=== PATIENT | male | born 2000 | race Caucasian/White ===

== ENCOUNTER 2025-03-20 08:40 | Emergency (ER) | payer OTHER, SELFPAY ==
--- OUTSIDE RECORDS SUMMARY | 2025-03-02 08:15 | XMS_ITS | Encounter Summary ---
Author Organization [facility] Address [address] [place] [address] Care Team Providers Care Dye Boarding Machine Operator Name Role Phone Unavailable Primary Care Provider Unavailabl e Reason for Referral * Outpatient (Routine) - Authorized Specialty Diagnoses / Procedures Referred By Izzy thomas Referred To Contact Procedures OPH General eye exam Rachna Chong O.D. [address] [place] [address] Phone: tel: fax: [facility] Region Referral ID Status Reason Start Date Expiration Date V isits Requested Visits Authorized [id number] Authorized 03/02/2025 06/02/2026 1 1 Reason for Visit * Reason Comments Eye Exam * Appointment Request (Routine) - Closed Specialty Diagnoses / Procedures Referred By Izzy thomas Referred To Contact Ophthalmology Diagnoses Eye Examination Normal Referral ID Status Reason Start Date Expiration Date Visits Re quested Visits Authorized [id number] Closed 12/14/2024 03/16/2026 1 1 Encounter Details Date Type Department Care Team (Latest Contact Info) Description 03/02/2025 9:15 AM CDT Comprehensive Visit Department of Ophthalmology in [place], [place] [address] [place] [id number] Rachna Chong O.D. [address] [place] [address] Eye Examination Normal (Primary Dx); Myopia Bilateral; Astigmatism Regular Bilateral; Nevus Choroid Left Discharge Disposition: Home or Self Care Social History Tobacco Use Types Packs/Day Years Used Date Smoking Tobacco: Never Smokeless Tobacco: Never [facility] Utilities Answer Date Recorded In the past 12 months has th e electric, gas, oil, or water company threatened to shut off services in your home? No 06/26/2024 Hunger Vital Sign Answer Date Recorded Within the past 12 months, y ou worried that your food would run out before you got the money to buy more. Never true 06/26/19 25 Within the past 12 months, t he food you bought just didn't last and you didn't have money to get more. Never true 06/26/2024 PRAPARE - Transportation Answer Date Re corded In the past 12 months, has l ack of transportation kept you from medical appointments or from getting medications? No 06/11 In the past 12 months, has l ack of transportation kept you from meetings, work, or from getting things needed for daily living? No 06/26/2024 Housing Stability Answer Date Recorded What is your living situation today? I have a [facility] place to live 06/26/2024 Sex and Gender Information Value Date Recorded Sex Assigned at Male 06/26/2024 9:25 PM EVENT SECURITY OFFICER Legal Sex Male 9:42 AM EVENT SECURITY OFFICER Gender Identity Male 06/26/2024 9:25 PM EVENT SECURITY OFFICER Sexual Orientation Straight 06/26/2024 9: 25 PM EVENT SECURITY OFFICER documented as of this encounter Progress Notes * Rachna Chong O.D. - 03/02/2025 9:15 AM CDT Theo Navarrete was seen today for Eye Exam #1 Eye Examination Normal #2 Myopia Bilateral #3 Astigmatism Regular Bilateral #4 Nevus Choroid Left 1-3. Theo has had a significant change in his glasses prescription, specifically in the amount of astigmatism correction. Based on that, I did do an Orbscan to rule out keratoconus. There is no evidence of keratoconus on the Orbscan. Glasses prescription given. I do recommend he refrain from rubbing his eyes so much as that can lead to keratoconus. 4. This is being monitored at [facility]. documented in this encounter Plan of Treatment Scheduled Orders Name Type Priority Associated Diagnoses Orde r Schedule OPH General eye exam Procedures Routine Expe cted: 03/02/2027 (Approximate), Expires: 03/02/2028 documented as of this encounter Visit Diagnoses Diagnosis Eye Examination Normal- Primary Myopia Bilateral Astigmatism Regular Bilateral Nevus Choroid Left documented in this encounter
--- OUTSIDE RECORDS SUMMARY | 2025-03-20 08:46 | XMS_ITS | Clinical Summary ---
Author Organization [facility] Address [address] [place] [address] Care Team Providers Care Pediatric Speech Language Pathologist Name Role Phone Unavailable Primary Care Provider Unavailabl e Source Comments Patient records contain information from all sites at [facility]. For routine questions regarding patient records, call [phone] during business hours, M-F 8:00 AM - 5:00 PM Central Time. Record requests for emergency care only can be directed to [phone] at any time.[facility] Allergies No known active allergies Medications dextroamphetamin e-amphetamine (ADDERALL) 10 mg tablet Take 20 mg by mouth. Active Adderall XR 20 mg 24 hr capsule Take 1 mg by mouth daily. 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 on 09/28/2020 Encounters Date Type Department Care Team Description 03/02/2025 9:15 AM CDT Comprehensive Visit Department of Ophthalmology in [place], [place] [address] [place] [address] Chong, Rachna K, O.D. Eye Examination Normal (Primary Dx); Myopia Bilateral; Astigmatism Regular Bilateral; Nevus Choroid Left Discharge Disposition: Home or Self Care from Last 3 Months Family History Medical History Relation Name Comments Blindness Neg Hx Cataracts Neg Hx Glaucoma Neg Hx Macular degeneration Neg Hx Retinal degeneration Neg Hx Retinal detachment Neg Hx Strabismus Neg Hx Vision loss Neg Hx Social History Tobacco Use Types Packs/Day Years Used Date Smoking Tobacco: Never Smokeless Tobacco: Never Tobacco Cessation:Counseling Given: Not Answered [facility] Utilities Answer Date Recorded In the past 12 months has th e electric, gas, oil, or water [employer] threatened to shut off services in your [...] your living situation today? I have a [facility] place to live 06/26/2024 Sex and Gender Information Value Date Recorded Sex Assigned at Male 06/26/2024 9:25 PM LABEL PRINTING MACHINIST Legal Sex Male 9:42 AM LABEL PRINTING MACHINIST Gender Identity Male 06/26/2024 9:25 PM LABEL PRINTING MACHINIST Sexual Orientation Straight 06/26/2024 9: 25 PM LABEL PRINTING MACHINIST Plan of Treatment Health Maintenance Due Date Last Done Comments HIV Screening 1998 Hepatitis C Screening 1998 Depression Screening (Annual PHQ-2) 05/11/2024 COVID-19 Vaccine ( season) 2025 08/17/2024, 05/05/2021, 09/20/2020, Additional history exists Influenza Vaccine (#1) 2025 , 01/21/2022, 05/14/2017, Additional history exists DTaP,Tdap,and Td Vaccines (8 - Td or Tdap) 01/22/2032 01/21/2022, 12/28/2009, 12/12/2003, Additional history exists Hepatitis B Vaccines Completed 08/05/1999, 05/14/1999, 1998 Pneumococcal vaccine (0-49 years) Aged Out 02/04/2000 No longer eligible based on patient's age to complete this topic IPV Vaccines Completed 12/12/2003, 08/1999, 03/05/1999, Additional history exists HPV Vaccines Completed 07/14/2013, 11/2012, 03/16/2012 Insurance [place] [id number]
--- OUTSIDE RECORDS SUMMARY | 2025-03-20 08:47 | XMS_ITS | Clinical Summary ---
Author Organization [facility] Address [address] [place] [address] Care Team Providers Care Professor Of Art Name Role Phone Gerardo Carroll DO Primary Care Provider [phone] Source Comments You are receiving this document as you are listed as the primary care provider,follow-up provider, or the patient has been referred to you for consultation.This is in compliance with the Medicare and[facility] EHR Incentive Program,which states Providers who transition their patient to another setting of careor provider of care or refers their patient to another provider of care shouldprovide summary care record for each transition of care or referral. [facility] Allergies No known active allergies Medications amphetamine-dextro amphetamine XR (ADDERALL XR) 20 MG 24 hour release capsuleIndications :Attention deficit hyperactivity disorder (ADHD), predominantly inattentive type (HRC) Take 1 Capsule (20 mg) by mouth daily. 90 Capsule 4 Active amphetamine-dextro amphetamine (ADDERALL) 5 MG tabletIndications: Attention deficit hyperactivity disorder (ADHD), predominantly inattentive type (HRC) Take 1 tablet in the afternoon when needed. 30 Tablet 4 Active Active Problems Problem Noted Date Diagnosed Date CAREPLAN: CONTROLLED SUBSTANCE 10/01/2020 Overview (01/26/2024): OK to receive 30 tablets of Adderall XR 20mg each month and 30 tabs of 5mg IR each month. Must follow up once every 12 months. 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 12/23/2007 Overview (02/08/2015): Epic Incontinence of feces 11/08/20072020 Overview (01/17/2015): ICD 10 Immunizations Immunization Administration Dates Next Due 4vHPV (Gardasil) 07/14/2013,05/17/2012, 2 DTaP 12/12/2003, 0,05/14/1999,1998,01/04/1999 HepA Ped/Adol (1-18 yrs) 02/10/2008,06/15/2007 HepB Ped/Adol (0-18 yrs) 08/05/1999,05/14/1999,0 1998 Hib (ActHIB) 05/07/2000,05/14/1999,03/05/1999 IPV (Polio) 12/12/2003, 0,03/05/1999,1998 Influenza (Flucelvax), Prese rv Free QIV 06/18/2023 Influenza IIV4 (Quadrivalent ) 0.5mL (91618) 01/21/2022 MCV4 (Menactra) 02/25/2011 MCV4 Menveo 2m.+ (two vial) 01/29/2016 MMR 12/12/2003,02/04/2000 Moderna Monovalent 12+ 05/05/2021 Pfizer Monovalent 12+ 09/20/2020,08/30/2020 Pneumococcal 7, PED 02/04/2000 Tdap 01/21/2022,12/28/2009 Varicella 02/08/2007,02/04/2000 Family History Medical History Relation Name Comments Cancer Father Gerald Navarrete Retinal Disorder Father Gerald Navarrete Cancer Mother Agustina Henson High Cholesterol Mother Agustina Henson Blindness Maternal Aunt Retinal Detachment Maternal Grandfather Macular Degeneration Maternal Grandmother Cataract Negative Family History Glaucoma Negative Family History Relation Name Status Comments Father Gerald Navarrete Mother Agustina Henson Maternal Aunt Maternal Grandfather Maternal Grandmother Social History Tobacco Use Types Packs/Day Years Used Date Smoking Tobacco: Never Smokeless Tobacco: Never Tobacco Cessation:Counseling Given: Not Answered Alcohol Use Standard Drinks/Week Comments Yes 1 (1 standard drink = 0.6 oz pur e alcohol) Social PHQ-2 Answer Date Recorded PHQ-2 Score 1 01/26/2024 Sex and Gender Information Value Date Recorded Sex Assigned at Not on file Legal Sex Male 6:14 AM CDT Gender Identity Not on file Sexual Orientation Not on file Last Filed Vital Signs Vital Sign Reading Time Taken Comments Blood Pressure 129/84 06/18/2023 4:08 PM WEB MARKETING ANALYST Pulse 51 06/18/2023 4:08 PM WEB MARKETING ANALYST Temperature 36.7 C (98 F) 01/14/2022 8:02 AM CDT Respiratory Rate - - Oxygen Saturation - - Inhaled Oxygen Concentration - - Weight 74.8 kg (165 lb) 01/26/2024 11:55 AM CDT Height 175.3 cm (5' 9) 01/14/2022 8:02 AM CDT Body Mass Index 24.37 01/14/2022 8:02 AM CDT Plan of Treatment Health Maintenance Due Date Last Done Comments Careplan Update 1998 Drug Screen 1998 Hep C Screening (Preventive Services) 1998 Prescription Monitoring Program 1998 COVID-19 Vaccine ( season) 2025 05/05/2021, 09/20/2020, 08/30/2020 Influenza Vaccine (#1) 2025 06/18/2023, 2021 Adult Preventive Visit 06/18/2025 , 01/14/2022, 05/25/2020 DTaP/Tdap/Td Vaccine (8 - Tdap) 01/22/2032 01/21/2022, 12/28/2009, 12/12/2003, Additional history exists Zoster/Shingles Vaccine (1 of 2) 2048 HepB Vaccine Completed 08/05/1999, 08/1999, 1998 Pneumococcal Vaccine Aged Out 02/04/2000 No long er eligible based on patient's age to complete this topic Hib Vaccine Completed 05/07/2000, 08/1999, 03/05/1999 IPV (Polio) Vaccine Completed 12/12/2003, 05/14/1999, 03/05/1999, Additional history exists Varicella Vaccine Completed 02/08/2007, 02/04/2000 HepA Vaccine Completed 02/10/2008, 06/15/2007 HPV Vaccine Completed 07/14/2013, 11/2012, 03/16/2012 MCV4 Vaccine Completed 01/29/2016, 02/25/2011 HIV Screening (Preventive Services) Completed 10/01/2020 Meningococcal B Vaccine Aged Out No l onger eligible based on patient's age to complete this topic Procedures Procedure Name Priority Date/Time Associated Diagnosis Comments HIV 1/2 AG/AB 4TH GEN Routine 10/01/2020 1:07 PM CDT Screening for HIV (human immunodeficiency virus) from Last 3 Months or Most Recently Relevant to Health Maintenance Results * HIV 1/2 Ag/Ab 4th Generation (10/01/2020 1:07 PM CDT) HIV 1/2 Antigen/Anti body (4th generation) Negative (Non Reactive) Negative (Non Reactive) 10/01/2020 6:08 PM CDT [facility] Comment:HIV-1 p24 Antigen an d HIV-1/HIV-2 Antibody not detected Blood Venipuncture / Unknown 10/01/2020 1:07 PM CDT 10/01/2020 1:07 PM CDT us Gerardo Carroll DO LAB_1 Final Result [facility] [address] [id number], [place] [phone] from Last 3 Months or Most Recently Relevant to Health Maintenance Insurance [employer] Care Teams Professor Of Art Relationship Specialty Start Date End Date Gerardo Carroll DO [address] [place] [address] [place] [address] PCP - General Family Practice 10/01/20
[2025-03-20 08:51] VITALS: BP 129/84; PULSE 64; RESP 20; TEMP 36.8; O2SAT 99; BMI 26.3
--- NOTE | 2025-03-20 09:17 | ED.GENADULT ---
HPI - General Adult General Chief complaint: Extremity Pain/Injury, Upper Stated complaint: L shoulder injury Time Seen by Provider: 03/20/25 09:17 History of Present Illness HPI narrative: Arrives with complaints of atraumatic left shoulder pain that started yesterday and became worse after playing volleyball. Alert and oriented, VSS, ABCs intact. 24-year-old man presenting to emergency department complaint of left shoulder area pain. Was playing volleyball last night and does recall diving to his left. He is right handed. Had been having some discomfort in his left periscapular area though prior to this than it continued to escalate over the course of the evening. Just pain radiating through left upper arm and a sense of weakness. Had some point moved a certain way and felt like a release of this discomfort but then again this morning when he rolled over on his left shoulder just excruciating pain. Rotating his neck does result in a sense of pulling particular when he is looking to the right; pulling into that left trapezial periscapular musculature area. Admittedly his discomfort is overall improved. This is never appreciated that degree of discomfort. Worried he might have a pinched nerve. Related Data Previous Rx's ?Medication ?Instructions ?Recorded trazodone 50 mg tablet 50 - 100 mg (1 - 2 x 50 mg) PO QHS 10/17/24 PRN insomnia #90 tabs dextroamphetamine-amphetamine ER 25 mg PO QAM #30 caps 02/22/25 25 mg 24hr capsule,extend release Allergies Allergy/AdvReac Type Severity Reaction Status Date / Time No Known Drug Allergies Allergy Verified 03/20/25 08:50 Review of Systems Status of ROS: Reports: 6 or more systems reviewed and unremarkable except as noted in History and below [facility] Surgical History History of tonsillectomy and adenoidectomy ?Z90.89 - Acquired absence of other organs (ICD-10) Family History Mother High blood pressure High cholesterol Skin cancer Grandfather Heart disease Social History What is your current living situation?: I presently have a place to live Problems where you live: no known problems In the past 12 months, utilities in danger of being shut off: no In past 12 months, lack of transportation kept you from medical appts, meetings, work, or getting things needed for daily living: no In the past 12 mos, have been you worried that your food would run out before you had money to buy more?: never true In the past 12 mos, the food you bought just didn't last and you didn't have money to buy more?: never true Smoking Status: Unknown if ever smoked How often does anyone, including family, friends and others, physically hurt you: never How often does anyone, including family, friends and others, insult or talk down to you: rarely How often does anyone, including family, friends and others, threaten you with harm: never How often does anyone, including family, friends and others, scream or curse at you: never Health Related Social Needs: Other personal risk factors, not elsewhere classified (Z91.89) Exam Narrative: Exam Narrative: Pleasant. NAD. Breathing easily. No pain to palpation of the clavicles or the shoulders directly. Has excellent range of motion at his left shoulder. It no trouble breathing. Pain slightly elicited to palpation in the left rhomboid musculature. Not really in the trapezius. Has good range of motion at the neck. No midline neck tenderness. Excellent strength to rotator cuff tests. Discomfort elicited a little bit with reaching up his back; discomfort goes into the left periscapular musculature. Const: Vital Signs, click to edit/add: Vital Signs - 24 hr 03/20/25 08:51 Temperature 98.2 F Pulse Rate [Pulse Oximeter] 64 Respiratory Rate 20 Blood Pressure [Ri ght Upper Arm] 129/84 Pulse Oximetry 99 Oxygen Delivery Me thod Room Air Documenting provider has reviewed patient's vital signs: yes Course Vital Signs Vital signs: Initial Vital Signs Temperature 98.2 F 03/20/25 08:51 Temperature Source Temporal Artery Scan 03/20/25 08:51 Pulse Rate 64 03/20/25 08:51 Respiratory Rate 20 03/20/25 08:51 Blood Pressure 129/84 03/20/25 08:51 Blood Pressure Mean 99 03/20/25 08:51 Pulse Oximetry 99 03/20/25 08:51 Oxygen Delivery Method Room Air 03/20/25 08:51 Vital Signs Temperature 98.2 F 03/20/25 08:51 Pulse Rate 64 03/20/25 08:51 Respiratory Rate 20 03/20/25 08:51 Blood Pressure 129/84 03/20/25 08:51 Pulse Oximetry 99 03/20/25 08:51 Oxygen Delivery Method Room Air 03/20/25 08:51 Temperature 98.2 F 03/20/25 08:51 Pulse Rate 64 03/20/25 08:51 Respiratory Rate 20 03/20/25 08:51 Blood Pressure 129/84 03/20/25 08:51 Pulse Oximetry 99 03/20/25 08:51 Oxygen Delivery Method Room Air 03/20/25 08:51 Medical Decision Making MDM Narrative Medical decision making narrative: Under if is experiencing some facet impingement that has resulted in some muscular recruitment into the area. I suppose could be a slipped disc but does not clearly describe typical radicular symptoms. Think some chiropractic or massage care might be beneficial. I am not sure that x-ray imaging would be particularly useful here at this time. We did discuss doing at least shoulder but he really seems to have good range of motion without significant discomfort here. Mutually agreed to defer. See patient discharge plan for further discussion I would consider taking 400-600 mg of ibuprofen 3 times daily over the next 4 days. Maybe take this with a little food. Wear the soft collar as needed for comfort over this next week. Consider gentle pull down stretches as demonstrated of your neck few times daily over the next few days. See handout on stretches/exercises for the upper back that I would consider doing over the next couple of weeks. Also you might want to check in with a local chiropractor. Patricio Shaffer [phone] and Misty Truong [phone] would be a couple of options. Medical Records Medical records reviewed: Yes I reviewed the patient's medical records Discharge Plan Discharge Clinical Impression: Periscapular pain Patient Disposition: Home, Self-Care Condition: Improved Additional Instructions: I would consider taking 400-600 mg of ibuprofen 3 times daily over the next 4 days. Maybe take this with a little food. Wear the soft collar as needed for comfort over this next week. Consider gentle pull down stretches as demonstrated of your neck few times daily over the next few days. See handout on stretches/exercises for the upper back that I would consider doing over the next couple of weeks. Also you might want to check in with a local chiropractor. Patricio Shaffer [phone] and Misty Truong [phone] would be a couple of options. Prescriptions: No Action trazodone 50 mg tablet 50 - 100 mg PO QHS PRN (Reason: insomnia) Qty: 90 3RF dextroamphetamine-amphetamine 25 mg capsule,extended release 24hr 25 mg PO QAM Qty: 30 0RF Follow Up/Referrals: David Brice MD [Primary Care Provider, Family Practice] Stand Alone Forms: [facility] Info Instructions
== END 2025-03-20 09:58 | disposition home or self-care (01) ==
LOC: ED 09:50
PROVIDERS: Emergency Provider Family Medicine; PCP Family Medicine
DX: M25.512 Pain in left shoulder (principal)
CPT/HCPCS: 99282; 99283; 99284